=== PATIENT | male | born 1945 | race Caucasian/White ===

== ENCOUNTER 2018-10-31 12:36 | Outpatient (CLI) | payer MEDICARE | END 2018-10-31 23:59 | disposition home or self-care (01) | LOC: STAR 12:36 | PROVIDERS: ATTEND Urology | DX: Z01.818 Encounter for other preprocedural examination (principal); N20.1 Calculus of ureter; I45.10 Unspecified right bundle-branch block | CPT/HCPCS: 36415; 80053; 93005 ==